=== PATIENT | female | born 1985 | race Asian ===

== ENCOUNTER 2020-10-31 09:34 | Outpatient (CLI) | payer BC, OTHER | END 2020-10-31 23:59 | disposition home or self-care (01) | LOC: INF 09:34 | PROVIDERS: ATTEND Internal Medicine | DX: Z23 Encounter for immunization (principal) | CPT/HCPCS: 96372 ==

== ENCOUNTER 2020-11-28 08:54 | Outpatient (CLI) | payer BC, OTHER | END 2020-11-28 21:40 | disposition home or self-care (01) | LOC: INF 08:54 | PROVIDERS: ATTEND Internal Medicine | DX: Z23 Encounter for immunization (principal) | CPT/HCPCS: 96372 ==